=== PATIENT | male | born 1985 | race Caucasian/White ===

== ENCOUNTER 2017-11-25 16:38 | Emergency (ER) | payer OTHER ==
[~2017-11-25] VITALS: Ht 180.3 cm; Wt 77.1 kg
[~2017-11-25 16:38] MED LIST: COLACE100 MG PO; VITAMIN E800 IU PO; XANAX0.5 MG PO; XANAX1 MG PO; ZOFRAN4 MG PO
--- NOTE | 2017-11-25 16:50 | ED MVC/FALL/TRAUMA COMPLAINT ---
History of Present Illness General Chief Complaint: Lower Extremity Problems Stated Complaint: "RIGHT PATELLA SWELLING" Source: patient Exam Limitations: no limitations Vital Signs & Intake/Output Vital Signs & Intake/Output Vital Signs Date Time Temp Pulse Resp B/P B/P Pulse O2 O2 Flow FiO2 Mean Ox Delivery Rate 11/25 1810 98.1 78 18 119/74 97 Room Air Room Air 11/25 1642 97.1 72 16 128/88 95 Room Air Allergies Coded Allergies: NO KNOWN ALLERGIES (02/09/14) Reconcile Medications Alprazolam (Xanax) 1 MG TAB 1 TAB PO DAILY PRN ANXIETY (Reported) Docusate Sodium (Colace) 100 MG SGL 1 CAP PO BID PRN Constipation please take to maintain at least 1 bowel movement per day and hold for more than 2 bowel movements in 24 hours Ibuprofen 800 MG TABLET 1 TAB PO TID PRN PAIN Ondansetron Hydrochloride (Zofran) 4 MG TAB 1 TAB PO Q6P PRN NAUSEA Vitamin E 800 IU SGL 1 TAB PO DAILY L[facility] Triage Nurses Notes Reviewed? yes Onset: Abrupt Duration: day(s): (1), constant, continues in ED, getting worse Timing: single episode today Severity: moderate, severe Severity Numbers: 5 Injuries/Fall Location: lower extremity (RT KNEE) Method of Injury: fall Loss of Consciousness: no loss of consciousness No Modifying Factors: none HPI: 31 YEAR OLD MALE HX OF ANXIETY OPIOD DEPENDENCE ON MMT PRESENTS FOR EVAL OF RT KNEE PAIN. PT RPEORTS HE HAS A HX OF RT SIDED PATELLAR INJURY AND HAD SURGERY ON THE RT KNEE 1 YEAR AGO. HE REPORTS YESTERDAY HE FELL DOWN STAIRS ONTO HIS RT KNEE. NO HEAD STRIKE OF LOC. HE REPORTS PAIN IN THE ANTERIOR RT KNEE THAT IS WORSE WITH MOVEMENT. HE ALSO REPORTS SWELLING,. NO NUMBNESS tingling ankle pain or hip pain. He is able to walk and bear weight but it is painful. He has not taken any medicine for his pain. Denies any other injuries no head strike no loss of consciousness (Anson Van) Past History Travel History Traveled to [place] past 21 day No Medical History Any Pertinent Medical History? 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 Age 64. MOTHER, Age 62. naternal GM, , Age 70; Cause: Colon cancer. Relation not specified for: colon cancer Hx Contributory? No (Anson Van) Review of Systems Review of Systems Constitutional: Reports: no symptoms. Eyes: Reports: no symptoms. Ears, Nose, Throat, Mouth: Reports: no symptoms. Respiratory: Reports: no symptoms. Cardiovascular: Reports: no symptoms. Gastrointestinal/Abdominal: Reports: no symptoms. Genitourinary: Reports: no symptoms. Musculoskeletal: Reports: joint pain, joint swelling, muscle pain, muscle stiffness. Skin: Reports: no symptoms. Neurological/Psychological: Reports: no symptoms. All Other Systems: Reviewed and Negative (Anson Van) Physical Exam Physical Exam General Appearance: well developed/nourished, no apparent distress, alert, awake Head: atraumatic, normal appearance Eyes: Bilateral: normal appearance, EOMI. Ears, Nose, Throat, Mouth: moist mucous membrane Neck: normal inspection, supple, full range of motion, no midline tenderness Respiratory: no respiratory distress Peripheral Pulses: 2+ tibialis posterior (R), 2+ tibialis posterior (L) Gastrointestinal: soft, non-tender Back: normal inspection, normal range of motion, no vertebral tenderness Extremities: pain with movement, tenderness, THERE IS A LARGE SURGICAL INCISION OVER THE ANTERIOR KNEE OVER THE MIDLINE. IT IS WELL HEALED. THERE IS MILD SOFT TISSUE SWELLING OF THE ANTERIOR RT KNEE. ROM IS LIMITED DUE TO PAIN. THERE IS TENDERNESS OVER THE PATELLA. NO ABRASIONS. NO CALF SWELLING OR PAIN. N/V SUPPLY INTACT Neurologic/Psych: no motor/sensory deficits, awake, alert, oriented x 3, normal gait, normal mood/affect Skin: intact, normal color, warm/dry Core Measures ACS in differential dx? No CVA/TIA Diagnosis No Sepsis Present: No Sepsis Focused Exam Completed? No (Sal GALVEZ,Anson) Progress Differential Diagnosis: FRACTURE, CONTUSION STRAIN, HARDWARE MALFUNCTION Plan of Care: Orders Procedure Date/time Status XRY-KNEE COMPLETE RIGHT 11/25 1642 Active Current Medications Sig/Karel Start time Last Medication Dose Stop Time Status Admin Ibuprofen 800 MG ONCE ONE 11/25 1644 UNVr (Motrin) 11/25 1645 Patient is here for evaluation of right knee pain after falling downstairs. He has a previous history of injuries to the right patella and had surgery one year ago. On exam he has tenderness to the right patella and pain with range of motion of the right knee. Neurovascular supplY intact patient is able to walk and bear weight. Patient was medicated with ibuprofen and x-ray was obtained. X-ray negative for acute injury or hardware malfunction. Advised rest ice elevation compression Ken wrap applied. Patient declines crutches. Ibuprofen 800 mg every 8 hours with food as needed for pain. Follow-up with primary care doctor to review all results of today's visit discussed return precautions in detail patient agrees the plan Diagnostic Imaging: Viewed by Me: Radiology Read. Discussed w/RAD: Radiology Read. Radiology Impression: PATIENT: PABLO WALTER PRESENT AGE: 31 PATIENT ACCOUNT NO: [id number] : 83 LOCATION: [facility] ORDERING PHYSICIAN: Anson GALVEZ SERVICE DATE: 11/25/17 EXAM TYPE: RAD - XRY- KNEE COMPLETE RIGHT EXAMINATION: XR KNEE, RIGHT CLINICAL INFORMATION: Fracture or hardware malfunction. COMPARISON: None TECHNIQUE: 5 views of the right knee. FINDINGS: There is a orthopedic cerclage wire passing between the tibial tubercle and a residual fracture fragment at the superior pole of the patella. There is an orthopedic screw extending through the superior patellar fragment fragment. The mid and lower pole the patella are absent. There is no acute fracture or dislocation. There is no hardware failure. There are a few small ossific fragments, loose bodies, in the suprapatellar region with a small joint effusion. IMPRESSION: 1. Status post repair of patellar fracture with orthopedic screw in residual patellar fragment and cerclage wire extending from the patella to the tibial tubercle. The orthopedic hardware is intact. 2. No acute fracture. 3. There is a small joint effusion. DICTATED BY: Polo Mcconnell MD DATE/TIME DICTATED:11/25/171733 LOSS PREVENTION LEAD:ANANDA DATE/TIME TRANSCRIBED:1733 CONFIDENTIAL, DO NOT COPY WITHOUT APPROPRIATE AUTHORIZATION. < Electronically signed in Other Vendor System> SIGNED BY: Polo Mcconnell MD (Anson Van) Departure Departure Disposition: HOME OR SELF CARE Condition: Stable Clinical Impression Primary Impression: Knee pain, right Qualifiers: Chronicity: acute Qualified Code: M25.561 - Pain in right knee Referrals: Simon Callahan MD (PCP/Family) Additional Instructions: Rest, keep your knee elevated wear Ken wrap. Apply ice for 15-20 minutes every few hours. Tylenol and ibuprofen as needed for pain. Make a follow-up with your primary care doctor for recheck in a few days. Monitor your symptoms if you have persistent pain he may need an MRI for further evaluation. Departure Forms: Customer Survey General Discharge Information Prescriptions: Current Visit Scripts Ibuprofen 1 TAB PO TID PRN PAIN #30 TAB (Anson Van) PA/ENROLLMENT SPECIALIST Co-Sign Statement Statement: ED Attending supervision documentation- [] I saw and evaluated the patient. I have also reviewed all the pertinent lab results and diagnostic results. I agree with the findings and the plan of care as documented in the PA's/ENROLLMENT SPECIALIST's documentation. [x] I have reviewed the ED Record and agree with the PA's/ENROLLMENT SPECIALIST's documentation. [] Additions or exceptions (if any) to the PAs/ENROLLMENT SPECIALIST's note and plan are summarized below: [] (Maico SHEIKH, Matty)
--- NOTE | 2017-11-25 17:41 | RADIOLOGY REPORT ---
EXAMINATION: XR KNEE, RIGHT CLINICAL INFORMATION: Fracture or hardware malfunction. COMPARISON: None TECHNIQUE: 5 views of the right knee. FINDINGS: There is a orthopedic cerclage wire passing between the tibial tubercle and a residual fracture fragment at the superior pole of the patella. There is an orthopedic screw extending through the superior patellar fragment fragment. The mid and lower pole the patella are absent. There is no acute fracture or dislocation. There is no hardware failure. There are a few small ossific fragments, loose bodies, in the suprapatellar region with a small joint effusion. IMPRESSION: 1. Status post repair of patellar fracture with orthopedic screw in residual patellar fragment and cerclage wire extending from the patella to the tibial tubercle. The orthopedic hardware is intact. 2. No acute fracture. 3. There is a small joint effusion.
[2017-11-25] MEDS ORDERED: IBUPROFEN800 M1 PO (17:59)
[2017-11-25 18:10] VITALS: BP 119/74
== END 2017-11-25 18:11 ==
LOC: ERH 16:38
DX: M25.561 Pain in right knee (principal); F17.210 Nicotine dependence, cigarettes, uncomplicated; F41.9 Anxiety disorder, unspecified; F11.20 Opioid dependence, uncomplicated
CPT/HCPCS: 73562-RT